=== PATIENT | male | born 1995 | race Caucasian/White ===

== ENCOUNTER 2021-01-05 22:20 | Observation (INO) | payer BC ==
[~2021-01-05] VITALS: Ht 175.3 cm; Wt 72.6 kg
--- NOTE | ~2021-01-05 | OP ---
[address] [address] OPERATIVE REPORT Name: WANDA MERRILL Room: [address] Valentino#: [id number] Admission: 01/06/21 Attend Phys: Roby Hardwick DO Discharge: 01/06/21 Date of : 89 Report #: [id number] THIS REPORT FOR: cc: Manny Amador MD, Neal A. MD Kramer, Adam P. DO DOC #: [id number] cc: MD Roby Mina DO DATE OF SURGERY: 01/06/2021 PREOPERATIVE DIAGNOSIS: Acute appendicitis with localized peritonitis. POSTOPERATIVE DIAGNOSIS: Acute appendicitis with localized peritonitis. PROCEDURE PERFORMED: Laparoscopic appendectomy. SURGEON: Roby Hardwick DO WASHER OPERATOR: , PGY1, resident. ANESTHESIA: General endotracheal. ESTIMATED BLOOD LOSS: Less than 10 mL. SPECIMENS: None. REFERRING PHYSICIAN: Dr. Manny Amador. DESCRIPTION OF PROCEDURE: After obtaining proper consents and discussing risks and complications with the patient, he was taken to the operating room, laid in the supine position and administered general anesthesia. He was then prepped and draped in the usual sterile fashion. A timeout was performed. We confirmed the appropriate patient and procedure. Preoperative antibiotics were given. SCDs were in place. We then made a small supraumbilical skin incision with a #11 scalpel blade. This was carried down through the skin into the subcutaneous tissue using electrocautery for hemostasis. Once the fascia was encountered, it was incised along the midline, grasped and elevated with Anirudh clamps. The peritoneum was then bluntly opened using a hemostat. We were easily able to visualize into the peritoneal cavity. At this time, we then placed 2-0 Vicryl sutures in a mamrit-li-enzki fashion to secure the Dolores trocar, which was then inserted and insufflation was begun. Once insufflation was complete, full visual inspection of the intraabdominal organs was performed. This revealed no significant gross abnormalities. At this time, we then placed a 5 mm suprapubic port and after doing that, I used a laparoscopic [place] [address] OPERATIVE REPORT Name: WANDA MERRILL Pravin Room: [address] Devang Avelar#: [id number] Admission: 01/06/21 Attend Phys: Roby Hardwick, DO Discharge: 01/06/21 Date of : 89 Report #: [id number] cecum. The omentum was covering the cecum and the appendix. I was easily able to sweep the omentum upwards and then we could identify a very inflamed, but nonruptured appendix. I then placed another 12 mm trocar in the left lower quadrant. We were then able to grasp and elevate the mesoappendix, which was sequentially clamped and divided using the Harmonic scalpel until the appendix was attached only at its base. Once the appendix was attached only at its base, we used Endo-EMERITA 45 mm purple load to divide the appendix at its base. We then placed the appendix into an Endopouch. We checked the appendiceal stump and mesoappendiceal stump for any leak or bleeding, there was none identified. We then stopped the insufflation. All air was released. The trocars were removed under direct vision. The appendix was removed through the umbilical port using the Endopouch. We then closed the umbilical fascia using the 2 previously placed 0 Vicryl sutures plus 2 additional 0 Vicryl sutures. I closed the left lower quadrant trocar site with fascia with a 0 Vicryl suture as well. The skin incisions were all closed using 4-0 Monocryl and Dermabond. The wounds were injected with 0.5% Marcaine without epinephrine. The patient tolerated the procedure well, was awakened in the operating room and transported to recovery room in stable condition. Sponge, needle and instrument counts were all correct at the end of the procedure. DO SAHRA Mtz/GINA/VALERIY By: [id number] Carli Hardwick DO /nt
[~2021-01-05 22:20] MED LIST: ATIVAN0.5 M1 PO; CEFDINIR300 MG PO; GUAIFEN-CODEINE10 ML PO; PROSCAR 5MG TABL5 MG PO; PROZAC20 MG PO; TESSALON PERLE100 MG PO; VENTOLIN HFA 1818 GM INH
[2021-01-05 22:27] VITALS: BP 128/70
[2021-01-05 22:54] LABS: ABSOLUTE BASOPHILS 0.1 thou/uL (0.0-0.2); ABSOLUTE EOSINOPHILS 0.1 thou/uL (0.0-0.7); ABSOLUTE LYMPHOCYTES 2.5 thou/uL (0.8-5.3); ABSOLUTE MONOCYTES 1.5 thou/uL (0.0-1.2); ABSOLUTE NEUTROPHILS 12.6 thou/uL (1.6-8.1); BASOPHILS 0.6 %; EOSINOPHILS 0.3 %; HEMATOCRIT 45.7 % (42.0-52.0); LYMPHOCYTES 14.9 %; MCH 30.6 pg (26.0-34.0); MCHC 32.9 g/dL (28.0-37.0); MONOCYTES 9.1 %; MPV 8.2 fl. (7.2-11.1); NUCLEATED RBCS 0 /100WBC; PLATELET COUNT* 261 thou/uL (150-400); POLYS 75.1 %; RBC 4.91 mil/uL (4.50-6.00); RDW-CV 12.7 % (10.5-14.5); WBC 16.8 thou/uL (4.0-11.0)
[2021-01-05 23:00] LABS: CALCIUM 9.6 mg/dL (8.5-10.1); CREATININE 1.1 mg/dL (0.6-1.3); POTASSIUM 3.2 mmol/L (3.5-5.1)
[2021-01-05 23:04] LABS: ALBUMIN 4.4 g/dL (3.4-5.0); TOTAL BILIRUBIN 1.4 mg/dL (<0.1-1.0); TOTAL PROTEIN 7.7 g/dL (6.4-8.2)
[2021-01-06] VITALS (10 sets, daily range): BP systolic 108–122; BP diastolic 54–79
[2021-01-06 00:23] LABS: URINE BILIRUBIN NEGATIVE (Negative); URINE BLOOD NEGATIVE (Negative); URINE CLARITY CLEAR; URINE COLOR YELLOW; URINE GLUCOSE-RANDOM NEGATIVE (Negative); URINE KETONES 3+ (Negative); URINE LEUKOCYTES-REFLEX NEGATIVE (Negative); URINE NITRITE-REFLEX NEGATIVE (Negative); URINE PROTEIN NEGATIVE (Negative); URINE UROBILINOGEN 0.2 E.U./dl (0.2-1.0)
[2021-01-06 00:31] LABS: AMP/METHAMP Negative (Negative); BARBITURATES Negative (Negative); BENZODIAZEPINES POSITIVE (Negative); COCAINE Negative (Negative); METHADONE Negative (Negative); OPIATES Negative (Negative); PCP Negative (Negative); THC POSITIVE (Negative)
--- NOTE | 2021-01-06 06:50 | NUR ---
Admit at 0230. He was very anxious and was hyperventing. He did have CVA symptoms but it was ruled out. CT showed appendicitis. He had been having nausea,vomiting and RLQ pain. Ativan was given iand that helped. He is NPO. Surgery is happening at 0900. Pain and nausea meds given x 2 and he has slept.
--- NOTE | 2021-01-06 08:35 | NUR ---
REPORT GIVEN TO DORIS PORTILLO FROM [facility]. PT TAKEN TO OR VIA BED ACCOMPANIED BY FAMILY.
--- NOTE | 2021-01-06 17:40 | NUR ---
PT ALERT AND ORIENTED X 4. PT GIVEN ANTI-NAUSEA AND PAIN MEDICATION PROR TO DISCHARGE. PT STEADILY AMBULATORY WITHOUT ASSIST. NO FEVER. VSS. IV TAKEN OUT WITH CATHETER INTACT. PT INCISIONS COVERED WITH DERMABOND AND INTACT. PT STATES UNDERSTANDING TO DISCHARGE INSTUCTIONS. PT DISCHARGED WITH FAMILY. PT TO FOLLOW UP WITH ORTHO DOC.
--- NOTE | 2021-01-07 13:41 | EKG ---
[place] [address] ELECTROCARDIOGRAM REPORT Name: WANDA MERRILL Room: [address] M.R.#: [id number] Admission: 01/06/21 Attend Phys: Roby Hardwick DO Discharge: 01/06/21 Date of : 89 Date of Service: 01/05/212227 Report #: [id number] THIS REPORT FOR: //name// [facility] ED Test Date: 2021-01-05 Test Time: 22:28:59 Pat Name: WANDA MERRILL Department: Room: [address] Gender: M Feeder/Folder: REGGIE : 1995 Requested By: Silke Saleh Order Number: [id number] Hattie MD: Aftab Otero Measurements Intervals [place] Rate: 77 P: 72 OK: 111 QRS: 102 QRSD: 105 T: 65 QT: 387 QTc: 438 Interpretive Statements Sinus rhythm Borderline short OK interval Borderline right axis deviation No previous ECG available for comparison Electronically Signed On 01-07-2021 13:41:44 CDT by Aftab Otero [email or web address] <ELECTRONICALLY SIGNED> By: Aftab Otero MD, [facility] 01/07/21 1341 [id number] 2228 Aftab Otero MD, [facility] /EPI
== END 2021-01-06 17:40 | disposition home or self-care (01) ==
LOC: M.ERS 22:20 → M.TBA-ER 01-06 02:08 → M.ORTHSURG 01-06 02:29
PROVIDERS: Personal Emergency Response Attendant; ADMIT Surgery; ATTEND Surgery
DX: K35.80 Unspecified acute appendicitis (principal); Z20.822 Contact with and (suspected) exposure to COVID-19; D72.829 Elevated white blood cell count, unspecified; E87.6 Hypokalemia; F17.200 Nicotine dependence, unspecified, uncomplicated; Z79.899 Other long term (current) drug therapy